=== PATIENT | female | born 1955 | race Caucasian/White ===

== ENCOUNTER 2019-05-02 09:36 | Emergency (ER) | payer BC ==
[2019-05-02] MEDS ORDERED: FLU Vacc QS2019-20(6MOS+)/PF 60 MCG/0.5 ML SYRINGE IM ONE (11:15)
[2019-05-02] MEDS ORDERED: Ketorolac 60 MG/2 ML SDV IM ONE (11:18)
--- NOTE | 2019-05-02 11:24 | EDM.PDOC ---
ED HPI GENERAL MEDICAL PROBLEM - General Chief Complaint: Lower Extremity Injury/Pain Stated Complaint: RT FOOT AND ANKLE INJURY Time Seen by Provider: 05/02/19 11:09 Source of Information: Reports: Patient, RN Notes Reviewed History Limitations: Reports: No Limitations - History of Present Illness INITIAL COMMENTS - FREE TEXT/NARRATIVE: Patient is a 63-year-old female who presents to the ED for the evaluation of a right foot injury. Patient notes she was walking in her garage last evening, and slipped on a mat, and states that she somewhat rolled her ankle. She states that there was no pain last night, she went to bed just fine. When she woke up this morning, she is having difficulty walking, as it is very painful to bear weight on the right foot. Her pain is most in the lateral midfoot area. She did appreciate some mild bruising and some swelling, but no obvious deformity. She can still wiggle all of her toes ad dianne., and can also move her ankle in all range of motion without pain. Patient states she did take some Excedrin and Tylenol for pain management, she has been icing the foot, but when she walks on it the pain is at an 8 out of 10. She does note a prior injury to the foot years ago, where she did have a previous break. Her primary care provider is Dr. Beckham. Right Feet Pain Score (Numeric/FACES): 0 - Related Data Allergies Allergy/AdvReac Type Severity Reaction Status Date / Time grass Allergy Airway Uncoded 05/02/19 10:53 Tightness lexii Allergy Airway Uncoded 05/02/19 10:53 Tightness Home Meds: Home Meds Acetaminophen/HYDROcodone [[place] 325-5 MG] 1 tab PO Q6H PRN #20 tablet 05/02/19 [Rx] Past Medical History - Past Health History Medical/Surgical History: Denies Medical/Surgical History Psychiatric History: Reports: Anxiety, Depression Social & Family History - Tobacco Use Smoking Status *Q: Former Smoker Used Tobacco, but Quit: Yes Month/Year Tobacco Last Used: november - Recreational Drug Use Recreational Drug Use: No Review of Systems - Review of Systems Review Of Systems: Comprehensive ROS is negative, except as noted in HPI. Musculoskeletal: Reports: Foot Pain (R lateral mid foot) Skin: Reports: Bruising (slight amount of bruising noted to R lateral mid foot with mild swelling) Neurological: Denies: Numbness, Tingling ED EXAM, GENERAL - Physical Exam Exam: See Below Exam Limited By: No Limitations General Appearance: Alert, WD/WN, No Apparent Distress Respiratory/Chest: No Respiratory Distress, Lungs Clear, Normal Breath Sounds, No Accessory Muscle Use, Chest Non-Tender Cardiovascular: Normal Peripheral Pulses, Regular Rate, Rhythm, No Edema, No Murmur Peripheral Pulses: 3+: Dorsalis Pedis (L), Dorsalis Pedis (R) GI/Abdominal: Normal Bowel Sounds, Soft, Non-Tender, No Distention, No Mass Extremities: Normal Inspection (with exception of bruise to R lateral mid foot) , Normal Range of Motion, Normal Capillary Refill Neurological: Alert, Oriented, Normal Cognition, No Motor/Sensory Deficits Psychiatric: Normal Affect, Normal Mood Skin Exam: Warm, Dry, Intact, No Rash, Ecchymosis (R lateral midfoot with mild swelling appreciated.) Course - Vital Signs Last Recorded V/S: Last Vital Signs Temp Pulse 96 05/02/19 10:53 Resp 16 05/02/19 10:53 BP 113/72 05/02/19 10:53 Pulse Ox 97 05/02/19 10:53 - Orders/Labs/Meds Orders: Active Orders 24 hr Category Date Time Status Influenza Vaccine Charge [RC] .DISCHARGE Care 05/02/19 11:02 Active Foot Comp Min 3V Rt [CR] Stat Exams 05/02/19 11:17 Ordered Meds: Medications Discontinued Medications Generic Name Dose Route Start Last Admin Trade Name Freq PRN Reason Stop Dose Admin Influenza Virus Vaccine 60 mcg 05/02/19 11:15 05/02/19 11:20 Fluzone Quad 6460-4360 Syringe IM 05/02/19 11:16 60 mcg .ONCE ONE Administration Ketorolac Tromethamine 60 mg 05/02/19 11:18 05/02/19 11:43 Toradol IM 05/02/19 11:19 60 mg ONETIME ONE Administration - Re-Assessments/Exams Free Text/Narrative Re-Assessment/Exam: 05/02/19 11:23 Patient presents to the ED for the evaluation of a right foot injury. I did order foot x-rays, and 60 mg IM Toradol for initial management. 05/02/19 11:58 X-rays are done, and demonstrate a fracture at the base of the fifth metatarsal , this is nondisplaced. Images reviewed by myself and Dr. Boudreaux. Will place the patient in a walking boot, and give her crutches, and have her follow-up with Ortho for clearance of nonweightbearing. Departure - Departure Time of Disposition: 12:05 Disposition: Home, Self-Care 01 Condition: Fair Clinical Impression: Metatarsal bone fracture Qualifiers: Encounter type: initial encounter Metatarsal bone: fifth Fracture type: closed Fracture alignment: nondisplaced Laterality: right Qualified Code(s): S92.354A - Nondisplaced fracture of fifth metatarsal bone, right foot, initial encounter for closed fracture - Discharge Information *PRESCRIPTION DRUG MONITORING PROGRAM REVIEWED*: Yes *COPY OF PRESCRIPTION DRUG MONITORING REPORT IN PATIENT KAREN: No Instructions: Metatarsal Fracture Referrals: Susy España MD [Primary Care Provider] - Forms: ED Department Discharge Additional Instructions: You have been evaluated in the ED for your right foot injury. Your x-ray demonstrated a fracture of the base of your 5th metatarsal in your right foot. Please use ice as tolerated to the affected area. You may take Tylenol 500 mg or ibuprofen 600mg q6 hrs for pain relief. Please do so until you have a tolerable level of pain with activity. Do not exceed 4000mg tylenol, Do not exceed 3200mg ibuprofen in a 24 hour time period. You were given a prescription for hydrocodone/acetaminophen 5/325, please take one tab every 6 hours as needed for further pain relief not relieved by Tylenol or ibuprofen alone. Please try to use as few of these as possible, as they can be addictive. These medicines can also be quite constipating, if you are using these medications, recommend that you increase your oral fluid intake or start a stool softener like MiraLAX. You were placed in a walking boot for management of this fracture, however just because it is a walking boot, you should be nonweightbearing until you are cleared by orthopedics, you are provided with crutches to be able to do so. Please call Ortho for follow-up and further evaluation Dr. Shanks is our orthopedic surgeon, his office number is [phone]. Please call and set up an appointment as soon as possible for further management. You may also follow- up with Dr. Evans through the [facility] if he should desire to do so. The number there is [phone]. Please return to ED if your symptoms should change or worsen. Sepsis Event Note - Evaluation Sepsis Screening Result: No Definite Risk - Focused Exam Vital Signs: Vital Signs Pulse Resp BP Pulse Ox 05/02/19 10:53 96 16 113/72 97 Date Exam was Performed: 05/02/19 Time Exam was Performed: 11:58 - My Orders Last 24 Hours: My Active Orders 05/02/19 11:02 Influenza Vaccine Charge [RC] .DISCHARGE 05/02/19 11:17 Foot Comp Min 3V Rt [CR] Stat - Assessment/Plan Last 24 Hours: My Active Orders 05/02/19 11:02 Influenza Vaccine Charge [RC] .DISCHARGE 05/02/19 11:17 Foot Comp Min 3V Rt [CR] Stat
--- NOTE | 2019-05-04 10:47 | CR ---
Right foot: Four views of the right foot were obtained. Comparison: No prior foot exam. Old fracture deformity is noted within the mid to distal 5th metatarsal shaft which appears healed. Acute fracture is noted within the base of the 5th metatarsal. No displacement is seen. Small plantar spur is noted. 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 No additional fracture or other abnormality is appreciated. Impression: 1. Nondisplaced acute fracture within the base of the right 5th metatarsal. 2. Other findings as described above. Diagnostic code #3 This report was dictated in [place] Standard Time
== END 2019-05-02 13:00 | disposition home or self-care (01) ==
LOC: JD.ED 09:36
DX: S92.354A Nondisplaced fracture of fifth metatarsal bone, right foot, initial encounter for closed fracture (principal); Z91.048 Other nonmedicinal substance allergy status; Z87.891 Personal history of nicotine dependence; W18.41XA Slipping, tripping and stumbling without falling due to stepping on object, initial encounter; Y93.01 Activity, walking, marching and hiking; Y92.59 Other trade areas as the place of occurrence of the external cause
CPT/HCPCS: 73630; 90471; 90686; 96372; 99283; J1885; G0008

== ENCOUNTER 2022-12-24 09:00 | Day surgery (SDC) | payer MEDICARE, BC ==
[~2022-12-24 09:00] MED LIST: Acetaminophen 325 MG Tab PO SCH; Dexmedetomidine 200 MCG/2 ML SDV ONE; Lactated Ringers 1,000 ML IV SCH; Morphine 8 MG, EPINEPHrine 0.3 MG, Cefuroxime 750 MG, Ketorolac 30 MG, Sodium Chloride ... PRN; Pregabalin 25 MG Cap PO SCH; Ropivacaine 0.5% 5 MG/ML 30 ML SDV ONE; Sodium Chloride 0.9% 10 ML Syringe FLUSH PRN; Sodium Chloride 0.9% 10 ML Syringe FLUSH SCH; oxyCODONE ER 10 MG TAB.ER PO SCH
[2022-12-24] MEDS ORDERED: Tranexamic Acid 1,000 MG/10 ML Vial ONE (09:48)
[2022-12-24] MEDS ORDERED: Vancomycin 1 GM SDV ONE (09:48)
[2022-12-24] MEDS ORDERED: fentaNYL 100 MCG/2 ML SDV ONE (10:20)
[2022-12-24] MEDS ORDERED: Midazolam 1 MG/ML 2 ML SDV ONE (10:21)
[2022-12-24] MEDS ORDERED: Propofol 200 MG/20 ML SDV ONE (10:25)
[2022-12-24] MEDS ORDERED: ceFAZolin 2 GM Vial ONE (11:43)
[2022-12-24] MEDS ORDERED: Bupivacaine 0.25% 10 ML SDV ONE (11:57)
[2022-12-24] MEDS ORDERED: Lactated Ringers 1,000 ML ONE (11:57)
[2022-12-24] MEDS ORDERED: HYDROmorphone 0.5 MG/0.5 ML Syringe IVPUSH PRN (12:11)
[2022-12-24] MEDS ORDERED: fentaNYL 100 MCG/2 ML SDV IVPUSH PRN (12:11)
[2022-12-24] MEDS: Triamcinolone Acetonide 40 MG/ML 1 ML SDV ONE ×2 (12:51→13:20)
[2022-12-24] MEDS ORDERED: Dexamethasone 4 MG/ML 5 ML MDV ONE (13:37)
[2022-12-24] MEDS ORDERED: EPINEPHrine 1 MG/ML SDV ONE (13:37)
[2022-12-24] MEDS ORDERED: oxyCODONE 5 MG Tab PO SCH (16:10)
== END 2022-12-24 16:30 | disposition home or self-care (01) ==
LOC: JD.SDS 09:00 → MERGE 11:15 → JD.SDS 16:30
PROVIDERS: ATTEND Orthopaedic Surgery
DX: M17.0 Bilateral primary osteoarthritis of knee (principal); G89.29 Other chronic pain; E78.00 Pure hypercholesterolemia, unspecified; F41.9 Anxiety disorder, unspecified; F32.A Depression, unspecified; Z79.899 Other long term (current) drug therapy; Z79.82 Long term (current) use of aspirin
CPT/HCPCS: 01402; 64447; 73560-26-LT; 73560-LT; 97116-GP; 97161-GP; A9270-GY; C1713; C1776; J0171; J0690; J0697; J1100; J1885; J2250; J2270; J2704; J2795; J3010; J3301; J3370; J3490; J7120

== ENCOUNTER 2024-03-20 08:05 | Day surgery (SDC) | payer BC, MEDICARE ==
[~2024-03-20 08:05] MED LIST changes: -Acetaminophen 325 MG Tab PO SCH; -Dexmedetomidine 200 MCG/2 ML SDV ONE; -Lactated Ringers 1,000 ML IV SCH; +Lidocaine 2% 5 ML SDV ONE; +Midazolam 1 MG/ML 2 ML SDV ONE; -Morphine 8 MG, EPINEPHrine 0.3 MG, Cefuroxime 750 MG, Ketorolac 30 MG, Sodium Chloride ... PRN; -Pregabalin 25 MG Cap PO SCH; +Propofol 200 MG/20 ML SDV ONE; -Ropivacaine 0.5% 5 MG/ML 30 ML SDV ONE; -Sodium Chloride 0.9% 10 ML Syringe FLUSH PRN; -Sodium Chloride 0.9% 10 ML Syringe FLUSH SCH; +fentaNYL 100 MCG/2 ML SDV ONE; -oxyCODONE ER 10 MG TAB.ER PO SCH
[2024-03-20] MEDS: Lactated Ringers 1,000 ML IV SCH (08:20)
[2024-03-20 08:46] LABS: BASOPHILS PERCENT AUTO 0.4 % (0.0-1.0); EOSINOPHILS PERCENT AUTO 0.2 % (0.0-6.0); HEMATOCRIT 26.8 % (37.0-47.0); HEMOGLOBIN 8.2 gm/dl (12.0-16.0); IMMATURE GRAN ABSOLUTE AUTO 0.02 K/mm3 (0.00-0.05); IMMATURE GRAN PERCENT AUTO 0.4 % (0.0-0.4); LYMPHOCYTES ABSOLUTE AUTO 1.2 K/mm3 (1.0-4.8); LYMPHOCYTES PERCENT AUTO 25.5 % (24.0-44.0); MEAN CORPUSCULAR HEMOGLOBIN 23.6 pg (28.0-32.0); MEAN CORPUSCULAR HGB CONC 30.6 g/dl (32.0-36.0); MEAN CORPUSCULAR VOLUME 77.2 fl (83.0-99.0); MEAN PLATELET VOLUME 9.2 fl (9.4-12.3); MONOCYTES ABSOLUTE AUTO 0.3 K/mm3 (0.0-0.8); MONOCYTES PERCENT AUTO 5.8 % (0.0-8.0); NEUTROPHILS ABSOLUTE AUTO 3.2 K/mm3 (1.8-7.7); NEUTROPHILS PERCENT AUTO 67.7 % (41.0-71.0); PLATELET COUNT,PLT 229 K/mm3 (150-400); RED BLOOD CELL COUNT 3.47 M/mm3 (4.10-5.30); WHITE BLOOD CELL COUNT,WBC 4.79 K/mm3 (3.9-11.3)
[2024-03-20 09:09] LABS: ANION GAP 15.5 (5-15); BUN/CREATININE RATIO 6.7 (14-18); CALCIUM 8.6 mg/dL (8.5-10.1); CREATININE 0.9 mg/dL (0.55-1.02); EST CRCL DRUG DOSING (CG) 58.18 mL/min; POTASSIUM,K 3.5 mEq/L (3.5-5.1)
== END 2024-03-20 10:37 | disposition home or self-care (01) ==
LOC: JD.SDS 08:05
PROVIDERS: ATTEND Surgery
DX: K29.50 Unspecified chronic gastritis without bleeding (principal); K57.30 Diverticulosis of large intestine without perforation or abscess without bleeding; K44.9 Diaphragmatic hernia without obstruction or gangrene; K31.89 Other diseases of stomach and duodenum; E78.00 Pure hypercholesterolemia, unspecified; F32.A Depression, unspecified; F41.1 Generalized anxiety disorder; Z86.0101 Personal history of adenomatous and serrated colon polyps; Z87.891 Personal history of nicotine dependence; Z79.899 Other long term (current) drug therapy
CPT/HCPCS: 36415; 43239; 45378; 80048; 85025; J2250; J2704; J3010; J7120; 00813; 99203; G0105; J3490

== ENCOUNTER 2024-04-28 08:08 | Observation (INO) | payer MEDICARE ==
[~2024-04-28 08:08] MED LIST changes: +Dexamethasone 4 MG/ML 5 ML MDV ONE; +Glycopyrrolate 0.2 MG/ML 2 ML SDV ONE; +HYDROmorphone 0.5 MG/0.5 ML Syringe IVPUSH PRN; +Lidocaine 1% 5 ML VIAL ONE; -Lidocaine 2% 5 ML SDV ONE; +Ondansetron 4 MG/2 ML SDV IVPUSH PRN; +Rocuronium 50 MG/5 ML Vial ONE; +Sodium Chloride 0.9% 10 ML Syringe FLUSH PRN; +ceFAZolin 2 GM Vial ONE; +fentaNYL 100 MCG/2 ML SDV IVPUSH PRN; -fentaNYL 100 MCG/2 ML SDV ONE; +fentaNYL 250 MCG/5 ML SDV ONE
[2024-04-28] MEDS: Lactated Ringers 1,000 ML IV SCH (08:45)
[2024-04-28 08:54] LABS: BASOPHILS PERCENT AUTO 0.4 % (0.0-1.0); EOSINOPHILS PERCENT AUTO 0.4 % (0.0-6.0); HEMATOCRIT 28.3 % (37.0-47.0); HEMOGLOBIN 8.5 gm/dl (12.0-16.0); IMMATURE GRAN ABSOLUTE AUTO 0.02 K/mm3 (0.00-0.05); IMMATURE GRAN PERCENT AUTO 0.4 % (0.0-0.4); LYMPHOCYTES ABSOLUTE AUTO 1.2 K/mm3 (1.0-4.8); MEAN CORPUSCULAR HEMOGLOBIN 21.3 pg (28.0-32.0); MEAN CORPUSCULAR VOLUME 70.8 fl (83.0-99.0); MEAN PLATELET VOLUME 9.8 fl (9.4-12.3); MONOCYTES ABSOLUTE AUTO 0.4 K/mm3 (0.0-0.8); MONOCYTES PERCENT AUTO 7.6 % (0.0-8.0); NEUTROPHILS ABSOLUTE AUTO 2.9 K/mm3 (1.8-7.7); NEUTROPHILS PERCENT AUTO 64.2 % (41.0-71.0); PLATELET COUNT,PLT 237 K/mm3 (150-400); WHITE BLOOD CELL COUNT,WBC 4.59 K/mm3 (3.9-11.3)
[2024-04-28] MEDS ORDERED: Phenylephrine 1% 10 MG/ML SDV ONE (10:08)
[2024-04-28] MEDS ORDERED: ePHEDrine 50 MG/ML SDV ONE (10:14)
[2024-04-28] MEDS ORDERED: Midazolam 1 MG/ML 2 ML SDV ONE (10:26)
[2024-04-28] MEDS ORDERED: Esmolol 100 MG/10 ML SDV ONE (10:45)
[2024-04-28] MEDS: Bupivacaine 0.5% 30 ML SDV ONE (11:44)
[2024-04-28] MEDS: EPINEPHrine 1 MG/ML SDV ONE (11:44)
[2024-04-28] MEDS ORDERED: Metoprolol Tartrate 5 MG/5 ML SDV ONE (12:27)
[2024-04-28] MEDS ORDERED: Neostigmine Methylsulfate 10 MG/10 ML MDV ONE (12:28)
[2024-04-28] MEDS ORDERED: Glycopyrrolate 0.2 MG/ML 2 ML SDV ONE (12:28)
[2024-04-28] MEDS ORDERED: Sugammadex Sodium 200 MG/2 ML VIAL IV ONE (13:00)
[2024-04-28] MEDS ORDERED: Ondansetron 4 MG Tab.DIS PO PRN (13:49)
[2024-04-28] MEDS ORDERED: oxyCODONE 5 MG Tab PO PRN (13:49)
[2024-04-28] MEDS ORDERED: Promethazine 25 MG Tab PO PRN (13:49)
[2024-04-28] MEDS ORDERED: Ibuprofen 600 MG Tab PO PRN (13:49)
[2024-04-28] MEDS ORDERED: Benzocaine/Cetylpyridinium/Menthol Lozenge MUCMEM PRN (13:54)
[2024-04-28] MEDS ORDERED: diphenhydrAMINE 50 MG/ML SDV IVPUSH PRN (13:55)
[2024-04-28] MEDS: Sodium Chloride 0.9% 10 ML Syringe FLUSH SCH (15:26)
[2024-04-28] MEDS: LORazepam 0.5 MG Tab PO PRN (20:20)
[2024-04-28] MEDS: Simethicone 80 MG Tab.Chew PO PRN (20:20)
[2024-04-28] MEDS: atorvaSTATin 20 MG Tab PO SCH (20:20)
[2024-04-28] MEDS: HYDROmorphone 0.5 MG/0.5 ML Syringe IVPUSH PRN (20:29)
[2024-04-29] MEDS: Acetaminophen 325 MG Tab PO PRN (00:54)
[2024-04-29] MEDS: Lactated Ringers 1,000 ML IV SCH (04:33)
[2024-04-29 04:38] LABS: HEMATOCRIT 22.4 % (37.0-47.0); MEAN CORPUSCULAR HEMOGLOBIN 21.3 pg (28.0-32.0); MEAN CORPUSCULAR HGB CONC 30.4 g/dl (32.0-36.0); MEAN CORPUSCULAR VOLUME 70.2 fl (83.0-99.0); MEAN PLATELET VOLUME 9.9 fl (9.4-12.3); PLATELET COUNT,PLT 194 K/mm3 (150-400); RED BLOOD CELL COUNT 3.19 M/mm3 (4.10-5.30); WHITE BLOOD CELL COUNT,WBC 5.16 K/mm3 (3.9-11.3)
[2024-04-29 05:08] LABS: ANION GAP 12.5 (5-15); CALCIUM 8.2 mg/dL (8.5-10.1); CREATININE 0.8 mg/dL (0.55-1.02); EST CRCL DRUG DOSING (CG) 65.45 mL/min; POTASSIUM,K 3.5 mEq/L (3.5-5.1)
[2024-04-29 05:25] LABS: HEMOGLOBIN 6.8 gm/dl (12.0-16.0)
[2024-04-29] MEDS ORDERED: Sodium Chloride 0.9% 250 ML IV SCH (05:45)
[2024-04-29] MEDS: Sertraline 50 MG Tab PO SCH (07:56)
[2024-04-29] MEDS ORDERED: Non-Formulary Medication 1 Each (Alendronate [Fosamax] 70 MG/75 ML Bottle) PO SCH (09:00)
== END 2024-04-29 13:05 | disposition home or self-care (01) ==
LOC: INTOOBSV 08:08 → JD.MS 08:08
PROVIDERS: ADMIT Surgery; ATTEND Surgery
DX: K44.9 Diaphragmatic hernia without obstruction or gangrene (principal); F41.9 Anxiety disorder, unspecified; F32.A Depression, unspecified; E78.00 Pure hypercholesterolemia, unspecified; Z79.899 Other long term (current) drug therapy
CPT/HCPCS: 36415; 36430; 43280; 80048; 85025; 85027; 86850; 86900; 86901; 86922; 93005; 94761; A9270; C1781; J0171; J0665; J0690; J1100; J1171; J2250; J2371; J2704; J2710; J3010; J3490; J7120; P9016; 00750; 96361; 96374; G0378